=== PATIENT | female | born 2005 | race Two or more races ===

== ENCOUNTER 2024-08-31 17:53 | Emergency (ER) | payer MEDICAID, SELFPAY ==
[2024-08-31 18:05] VITALS: BP 151/72; PULSE 100; RESP 19; TEMP 37; O2SAT 98; BMI 31.9
--- NOTE | 2024-08-31 18:25 | PD.EDRME ---
Rapid Medical Screening Exam [facility] Arrival date/time: 08/31/24 17:53 19F with no significant PMH presents to ED with 3 days of ARANDA, N/V, gen ab pain, and non-bloody diarrhea. Patient denies dysurial and vaginal bleeding. Chief Complaint: General Adult/Misc Complain Vital signs: Vital Signs Temperature 98.6 F 08/31/24 18:05 Pulse Rate 100 08/31/24 18:05 Respiratory Rate 19 08/31/24 18:05 Blood Pressure 151/72 H 08/31/24 18:05 Pulse Oximetry (%) 98 08/31/24 18:05 Oxygen Delivery Method Room Air 08/31/24 18:05
[2024-08-31] MEDS: METOCLOPRAMIDE 5 MG TABLET 10 MG PO (18:39)
[2024-08-31] MEDS: NAPROXEN 250 MG TABLET 500 MG PO (18:40)
[2024-08-31 19:08] LABS: Collection Type, Urine Clean Catch; WBC,Urine 0 /hpf (0-5)
[2024-08-31 19:33] LABS: Basophils % (Auto) 0 % (0-2.5); Eosinophils # (Auto) 0.1 Thou/mm3 (0.0-0.5); Eosinophils % (Auto) 1 % (0-10); Hematocrit 36.6 % (36.0-46.0); Hemoglobin 11.9 g/dL (12.0-16.0); Immature Granulocytes % (Auto) 0 % (0-0); Immature Granulocytes Auto 0.03 Thou/mm3 (0.00-0.00); Lymphocytes # (Auto) 2.3 Thou/mm3 (1.0-4.8); Lymphocytes % (Auto) 25 % (10-50); Mean Corpuscular HGB Conc 32.5 g/dl (31.0-37.0); Mean Corpuscular Hemoglobin 25.3 pg (25.0-35.0); Mean Corpuscular Volume 78 fL (80-100); Monocytes # (Auto) 0.9 Thou/mm3 (0.0-0.8); Monocytes % (Auto) 10 % (0-12); Neutrophils # (Auto) 5.8 Thou/mm3 (1.8-7.7); Neutrophils % (Auto) 64 % (37-80); Nucleated Red Blood Cell % 0 /100 WBC (0); Platelet Count 234 Thou/mm3 (140-440); RDW Standard Deviation 40.4 fL (36.4-46.3); White Blood Count 9.1 Thou/mm3 (4.5-11.0)
[2024-08-31 19:42] LABS: Amphetamine/Methamp Scrn,U Negative (Negative); Barbiturate Screen,Urine Negative (Negative); Benzodiazepines Screen,Urine Negative (Negative); Benzoylecgonine Screen, Ur Negative (Negative); Fentanyl Screen,Urine Negative (Negative); Opiate Screen,Urine Negative (Negative); THC Screen,Urine Negative (Negative)
[2024-08-31 19:45] LABS: Bilirubin,Urine Negative (Negative); Blood,Urine Trace (Negative); Clarity,Urine Turbid (Clear/Hazy); Color,Urine Yellow (Lt Yel-Yel); Glucose, Urine Negative (Negative); Ketones,Urine 1+ (Negative); Leukocyte Esterase,Urine Negative (Negative); Nitrite,Urine Negative (Negative); PH,Urine 7.5 (5.0-7.0); Protein,Urine Trace (Neg - Trace); RBC,Urine 2 /hpf (0-3); Specific Gravity,Urine 1.021 (1.001-1.035); Squamous Epithelial Cell,Urine 5 /hpf (0-5); Urobilinogen,Urine Negative mg/dL (0.0-1.0)
[2024-08-31 19:48] LABS: HCG Qualitative,Urine Negative
[2024-08-31 19:50] LABS: Alanine Aminotransferase 20 U/L (10-49); Albumin, Serum 4.5 gm/dL (3.5-5.0); Albumin/Globulin Ratio 1.6 (1.2-2.2); Alkaline Phosphatase 82 U/L (46-116); Anion Gap 8 (7-16); Aspartate Amino Transferase 27 U/L (0-34); BUN/Creatinine Ratio 12 Ratio (12-20); Bilirubin,Total 0.2 mg/dL (0.3-1.2); Blood Urea Nitrogen 11 mg/dL (9-23); Carbon Dioxide 26.8 mMol/L (20.0-31.0); Chloride 106 mMol/L (98-107); Creatinine (Component) 0.9 mg/dL (0.6-1.3); Estimated Creatinine Clearance 112.6 mL/min (>60); Globulin 2.8 gm/dL (2.3-3.5); Glucose 91 mg/dL (74-106); Lipase 49 U/L (12-53); Osmolality,Calculated 280 (275-295); Potassium 4.3 mMol/L (3.4-5.1); Sodium 141 mMol/L (136-145); Total Protein 7.3 gm/dL (5.7-8.2); eGFR > 60 See Note
--- NOTE | 2024-08-31 21:08 | EDNOTE_ITS ---
<Statement entered by Kierra Villalta MD - 09/02/24 19:22> I, Kierra Villalta MD, have reviewed the history, exam, and assessment of the patient. I have evaluated the patient independently and agree with the plan of care documented by [ ]. All diagnostic studies were reviewed and discussed. I confirm the diagnosis as documented by the Resident. I was present during the Medical Decision Making for this patient. The patient's plan of care was created between myself and the Resident and consistent with our discussion of the patient's case. ED General RME/HPI General Chief complaint: General Adult/Misc Complain Stated complaint: MIGRAINE, DIARRHEA, NECK PAIN Time Seen by Provider: 08/31/24 20:34 Arrival date/time: 08/31/24 17:53 RME / HPI RME / HPI narrative: 08/31/24 17:53 A 19F with hx of asthma and headaches presents to ED on 08/31/24 with chief complaint of headache and non-bloody diarrhea x3 days. Patient states that she has been eating ham and cheese which causes her to have diarrhea and abdominal cramping shortly after. Yesterday in clinic patient's temperature elevated and patient was found to be hypertensive. Patient also endorses diffuse abdominal pain shortly after each diarrhea episode. She is averaging about 10 diarrhea episodes per day. She does drink water and Pedialyte, which she only vaguely tolerates. Patient diarrhea initially started as dark and thick and has evolved into a yellow/runny diarrhea. Avoiding food provides some relief. Allergies: none, Medications: tylenol, Family hx: none, surgeries: none, and social hx: none. complaint: headache and diarrhea Onset (ago): day(s) Location: head and abdomen Radiation: neck Severity: mild and moderate Quality: aching Consistency: intermittent and colicky Relieving factors: none Exacerbating factors: eating Associated symptoms: fever/chills Related Data Previous Rx's ?Medication ?Instructions ?Recorded albuterol sulfate 90 mcg/actuation 2 puff inhalation Q6HR PRN 10/15/17 aerosol inhaler (ProAir HFA) WHEEZING #1 inh prednisolone 15 mg/5 mL oral 5 ml PO QDAY #25 mL 10/15/17 solution ihinuwq-[id number] 250 1 tab PO Q6H PRN pain #20 tabs 02/22/22 mg-250 mg-65 mg tablet (Migraine Formula) Allergies Allergy/AdvReac Type Severity Reaction Status Date / Time shrimp Allergy Intermediate RASH,VOMITING,ABD Verified 02/22/22 17:18 PAIN Review of Systems Review of Systems Narrative Review of Systems: CONSTITUTIONAL: Denies fever or malaise HEENT: No eye redness or complaint of ear pain SKIN: ?No rash or itching. CARDIOVASCULAR: No chest pain or pedal edema RESPIRATORY: ?No shortness of breath, cough or sputum. GASTROINTESTINAL: No vomiting. ++ yellow diarrhea GENITOURINARY: ?No dysuria or foul-smelling urine NEUROLOGICAL: Reports headache, dizziness MUSCULOSKELETAL: ?No muscle, back pain, joint pain or stiffness. HEMATOLOGIC: No bleeding or bruising.? LYMPHATICS: No enlarged nodes or streaking ENDOCRINOLOGIC: No sweating or polyuria ALLERGIES: ?History of asthma Past Medical History Past Medical History CARDIAC: Negative Congestive Heart Failure RESPIRATORY: Negative Chronic Obstructive Pulmonary Disease (COPD) GENITOURINARY: Negative Renal Disease ENDOCRINE: Negative Diabetes Mellitus Type 1 or Diabetes Mellitus Type 2 Travel History EBOLA RISK: No ED Exam Narrative Physical exam: Constitutional: Young lady, well-developed, well-nourished, in no acute distress, sitting in chair with mother next to her. HEENT: NCAT, EOMI, reactive round pupils b/l, patent nares b/l, moist mucous membranes, on room air. Lung: CTAB, no wheezing, no rhonchi, no crackles. Heart: Regular S1S2, no murmurs, gallops, or rubs Abdomen: Soft, non-distended, non-tender, +++bowel sounds. Extremities: No cyanosis, clubbing, no edema of b/l legs, 2+ dorsalis pedis pulses present b/l Neurologic: No focal sensory or motor deficits noted, AOx3, appropriate affect Skin: Warm, dry, no lesions or rashes noted Course Quality Measures none Orders Category Date Time Status CBC Stat Lab 08/31/24 19:03 Completed CMP [Comprehensive Metabolic Panel] Stat Lab 08/31/24 19:03 Completed Drug Screen,Urine Stat Lab 08/31/24 18:11 Completed HCG Qualitative,Urine Stat Lab 08/31/24 18:11 Completed Lipase Stat Lab 08/31/24 19:03 Completed UA [Urinalysis] Stat Lab 08/31/24 18:11 Completed Metoclopramide [Reglan] Med 08/31/24 18:25 Discontinued 10 mg PO X1 ONE Naproxen [Naprosyn] Med 08/31/24 18:25 Discontinued 500 mg PO X1 ONE Vital Signs Vital signs: Vital Signs Temperature 98.6 F 08/31/24 18:05 Pulse Rate 100 08/31/24 18:05 Respiratory Rate 19 08/31/24 18:05 Blood Pressure 151/72 H 08/31/24 18:05 Pulse Oximetry (%) 98 08/31/24 18:05 Oxygen Delivery Method Room Air 08/31/24 18:05 [facility] Patient data External records reviewed:: [facility] previous records and None Clinical information provided by:: patient Social determinants that could affect healthcare access:: none Patient has the following chronic illnesses:: asthma How is presenting disease/condition affected by chronic disease/condition?: u neffected by Evaluation data The following diagnostics were reviewed and interpreted by me:: lab results Lab and/or radiology exams considered but not ordered:: N/A Interpretation Summary: CMP within normal limits Vitals stable. Medications Medications considered but not ordered:: None Medication administrations:: Medication Administration History Discontinued Medications Metoclopramide HCl (Metoclopramide 5 Mg Tablet) 10 mg PO X1 ONE Stop: 08/31/24 18:26 Last Admin: 08/31/24 18:39 Dose: 10 mg Documented By: SHIKHA Naproxen (Naproxen 250 Mg Tablet) 500 mg PO X1 ONE Stop: 08/31/24 18:26 Last Admin: 08/31/24 18:40 Dose: 500 mg Documented By: SHIKHA Metaclopramide and naproxen Consultations Consultation(s) initiated? (list below): No Diagnosis Differential Diagnosis ED Complaint MDM: Diarrheal gastritis Most likely diagnosis given after review of the tests above:: Gastroenteritis Admission Indicated Admission indicated?: not indicated Explain why admission is indicated or not indicated:: Not indicated as symptoms/clinical presentation is infectious diarrheal source, likely fluids and [place] diet can help her at home. Admission Request Was there a request for admission?: No Disposition Plan Disposition Plan: Discharge Discharge Attestation Discharge Attestation: The patient and all family members were given an opportunity to ask questions and understood the discharge instructions. Discharge instructions specifically effects, indications for sooner follow up or return to the emergency department, and the expected course of current diagnosis. Patient condition: Stable Medical Decision Making MDM Narrative MDM Narrative: A 19F with hx of asthma and headaches presents to ED on 08/31/24 with chief complaint of headache and non-bloody diarrhea x3 days. Patient states that she she has been eating ham and cheese which causes her to have diarrhea and abdominal cramping shortly after. Yesterday in clinic patient's temperature elevated and patient was found to be hypertensive. Patient also endorses diffuse abdominal pain shortly after each diarrhea episode. Her diarrheal episodes present with wide differentials: gastroenteritis (viral vs bacterial) and lactose intolerance. She is hemodynamically stable with CBC and CMP within normal limits. Therefore, patient can be treated with fluid hydration and bland diet. Differential Diagnosis Differential Diagnosis: Diarrheal gastritis Lab Data 08/31/24 19:03 08/31/24 19:03 Labs: Lab Results 08/31/24 08/31/24 Range/Units 18:11 19:03 WBC 9.1 (4.5-11.0) Thou/mm3 RBC 4.70 (4.00-5.20) Miln/mm3 Hgb 11.9 L (12.0-16.0) g/dL Hct 36.6 (36.0-46.0) % MCV 78 L (80-100) fL MCH 25.3 (25.0-35.0) pg MCHC 32.5 (31.0-37.0) g/dl RDW Std Deviation 40.4 (36.4-46.3) fL Plt Count 234 (140-440) Thou/mm3 Neut % (Auto) 64 (37-80) % Lymph % (Auto) 25 (10-50) % Wheeler % (Auto) 10 (0-12) % Eos % (Auto) 1 (0-10) % Baso % (Auto) 0 (0-2.5) % Neut # (Auto) 5.8 (1.8-7.7) Thou/mm3 Lymph # (Auto) 2.3 (1.0-4.8) Thou/mm3 Wheeler # (Auto) 0.9 H (0.0-0.8) Thou/mm3 Eos # (Auto) 0.1 (0.0-0.5) Thou/mm3 Baso # (Auto) 0.0 (0.0-0.2) Thou/mm3 Immature Gran # (Auto) 0.03 H (0.00-0.00) Thou/mm3 Absolute Nucleated RBC 0.00 (0.00-0.00) Thou/mm3 Immature Gran % 0 (0-0) % Nucleated RBC % 0 (0) /100 WBC Sodium 141 (136-145) mMol/L Potassium 4.3 (3.4-5.1) mMol/L Chloride 106 (98-107) mMol/L Carbon Dioxide 26.8 (20.0-31.0) mMol/L Anion Gap 8 (7-16) BUN 11 (9-23) mg/dL Creatinine 0.9 (0.6-1.3) mg/dL Estim Creat Clear Calc 112.6 (>60) mL/min eGFR > 60 (60 - ) See Note BUN/Creatinine Ratio 12 (12-20) Ratio Glucose 91 (74-106) mg/dL Calculated Osmolality 280 (275-295) Calcium 10.0 (8.3-10.6) mg/dL Corrected Calcium 10.0 (8.5-10.1) mg/dL Total Bilirubin 0.2 L (0.3-1.2) mg/dL AST 27 (0-34) U/L ALT 20 (10-49) U/L Alkaline Phosphatase 82 (46-116) U/L Total Protein 7.3 (5.7-8.2) gm/dL Albumin 4.5 (3.5-5.0) gm/dL Globulin 2.8 (2.3-3.5) gm/dL Albumin/Globulin Ratio 1.6 (1.2-2.2) Lipase 49 (12-53) U/L Ur Collection Type Clean Catch Urine Color Yellow (Lt Yel-Yel) Urine Clarity Turbid A (Clear/Hazy) Urine pH 7.5 H (5.0-7.0) Ur Specific [place] 1.021 (1.001-1.035) Urine Protein Trace (Neg - Trace) Urine Glucose (UA) Negative (Negative) Urine Ketones 1+ A (Negative) Urine Blood Trace (Negative) Urine Nitrite Negative (Negative) Urine Bilirubin Negative (Negative) Urine Urobilinogen (Auto) Negative (0.0-1.0) mg/dL Ur Leukocyte Esterase Negative (Negative) Urine RBC 2 (0-3) /hpf Urine WBC 0 (0-5) /hpf Ur Squamous Epith Cells 5 (0-5) /hpf Urine Bacteria None (None) Urine HCG, Qual Negative Urine Opiates Screen Negative (Negative) Urine Fentanyl Screen Negative (Negative) Ur Barbiturates Screen Negative (Negative) U Amphetamin/Meth Scrn Negative (Negative) U Benzodiazepines Scrn Negative (Negative) U Cocaine Metab Screen Negative (Negative) U Marijuana (THC) Screen Negative (Negative) Discharge Plan Plan Patient Disposition: HOME (Self Care) Patient condition on transfer: Stable Health Concerns: Please follow up with PCP in 1 week. Recommend to avoid cheese for the next 4-5 days. Recommend bland diet and to increase fluid intake for viral infection. If symptoms worsen please return to the ED. Prescriptions/Referrals Prescriptions/Med Rec: No Action prednisolone 15 MG/5 ML syrup 5 ml PO QDAY Qty: 25 0RF albuterol sulfate [ProAir HFA] 8.5 GM HFA aerosol inhaler 2 puff Inhalation Q6HR PRN (Reason: WHEEZING) Qty: 1 0RF Rx Instructions: please give spacer Migraine Formula 250-250-65 mg tablet 1 tab PO Q6H PRN (Reason: pain) Qty: 20 0RF Referrals: No Primary/Family,Physician [Primary Care Provider] - In 1 week Problem List Clinical Impression: Gastroenteritis, Viral enteritis Patient/Caregiver Discharge Instructions Print Language: Yi Stand Alone Forms: Donya Award Info., Patient Portal Info Letter
[2024-08-31 21:43] VITALS: RESP 18
== END 2024-08-31 21:44 | disposition home or self-care (01) ==
PROVIDERS: Physician Assistant; Emergency Provider Emergency Medicine
DX: A08.4 Viral intestinal infection, unspecified (principal); J45.909 Unspecified asthma, uncomplicated
CPT/HCPCS: 36415; 80053; 80307; 81001; 81025; 83690; 85025; 99283; A9270